=== PATIENT | female | born 1955 | race African-American/Black ===

== ENCOUNTER → 2017-04-30 | Outpatient (CLI) | payer BC ==
--- NOTE | 2017-04-30 13:30 | RAD ---
APPROVED REPORT Test Type: Exercise Stress Nurse/Tech: Fariha Connolly R.N. Test Indications: chest pain Cardiac History: asthma, high chol Medications: see ehr Medical History: see ehr Resting ECG: sr Resting Heart Rate: 74 bpm Resting Blood Pressure: 124/80mmHg Pretest Chest Pain: No chest pain Nurse/Tech Notes lungs cta, diminished, heart tones regular Consent: The procedure was explained to the patient in lay terms. Informed consent was witnessed. Giancarlo eout was entered into [email or web address]. History and Stress Test performed by Pankaj Escalona, RT (R) (N) Stress Symptoms No chest pain or symptoms. Pt very fearful of treadmill, talked to her throughout, but unable to incr ease speed or incline due to anxiety POST EXERCISE Reason for Termination: Patient request, Fatigue Target HR: No Max HR: 132 bpm 82% of Maximum Predicted HR: 161 bpm Exercise duration: 9:59 min:sec, 1 Stage Max Blood Pressure: 149/87mmHg Blood Pressure response to exercise: Normal blood pressure response during stress. Chest Pain: No. Arrhythmia: No. ST Change: No. INTERPRETATION Stress EKG Conclusion: Baseline EKG showed sinus rhythm. No ischemic changes at peak stress. No arr hythmias. However, patient achieved only 82% of predicted maximum heart rate. Conclusion 1. Treadmill exercise stress electrocardiogram did not show any diagnostic evidence of ischemia at perez bmaximal stress (82% predicted max HR)
== END | disposition home or self-care (01) ==
LOC: NM 08:20
DX: R07.9 Chest pain, unspecified (principal)
CPT/HCPCS: 93017